=== PATIENT | male | born 1950 | race Caucasian/White ===

== ENCOUNTER 2021-01-19 04:11 | Emergency (ER) | payer OTHER, SELFPAY ==
[2021-01-19 04:13] VITALS: PULSE 70; RESP 14; TEMP 36.7
--- NOTE | 2021-01-19 04:56 | ED.GENADULT ---
HPI - General Adult General Chief complaint: Unspecified Stated complaint: Bleeding vericose vein Time Seen by Provider: 01/19/21 04:47 History of Present Illness HPI narrative: Patient 70-year-old gentleman who presents the emergency department with chief complaint of bleeding varicose vein. The patient states that he has history of bleeding varicose veins and normally is able to control them with pressure but tonight he bumped it and it started bleeding notes he was pumping out blood the patient states that he has no symptoms of lightheaded or feel like he is going to pass out Related Data Allergies Allergy/AdvReac Type Severity Reaction Status Date / Time No Known Allergies Allergy Mild Verified 01/19/21 04:18 Review of Systems Review of Systems: Narrative: A 10 system review of systems was completed on the patient and is negative except for what is stated in the HPI. Nursing and ancillary documentation was reviewed. [facility] Social History Social History Gender identity (if verbalized by the patient): Male Comments History of peripheral vascular disease and history of varicose veins Social history patient denies illicit drug use Exam Narrative: Exam Narrative: GENERAL: Well-appearing, well-nourished, and in no acute distress. HEAD: Normocephalic, atraumatic. EYES: PERRLA and EOMI. ENT: Nares clear, no rhinorrhea or epistaxis. Mucous membranes moist. NECK: Supple. CHEST: Clear to auscultation. No respiratory distress. HEART: Regular rate and rhythm. No murmur heard. Normal peripheral pulses. ABDOMEN: Soft, nontender, nondistended, normal active bowel sounds. EXTREMITIES: Normal range of motion. No edema. SKIN: Warm, dry, there is a small punctate lesion in the left lower extremity on the lateral aspect of the ankle that is bleeding profusely NEURO: No focal deficits. Alert and oriented x3. PSYCH: Normal mood and affect. Course Vital Signs Vital signs: Vital Signs Temperature 36.7 C 01/19/21 04:13 Pulse Rate 70 01/19/21 04:13 Respiratory Rate 14 01/19/21 04:13 Temperature 36.7 C 01/19/21 04:13 Pulse Rate 70 01/19/21 04:13 Respiratory Rate 14 01/19/21 04:13 Procedures Laceration Laceration 1: Date: 01/19/21 Time: 05:04 Site: lower extremity Side (If applicable): left Size (cm): 0.5 Description: other (Punctate) Depth: simple, single layer ====== Skin Level ====== Skin layer closed with: prolene Size (cm): 4-0 Number of sutures: 1 Technique: other (Pursestring) ====== Subcutaneous Layer ====== ====== Muscle Layer ====== ====== Tendon Layer ====== Medical Decision Making Vital Signs Vital Signs: Vital Signs Temperature 36.7 C 01/19/21 04:13 Pulse Rate 70 01/19/21 04:13 Respiratory Rate 14 01/19/21 04:13 Temperature 36.7 C 01/19/21 04:13 Pulse Rate 70 01/19/21 04:13 Respiratory Rate 14 01/19/21 04:13 Discharge Plan Discharge Clinical Impression: Bleeding from varicose vein Patient Disposition: Home, Self-Care Condition: Stable Instructions: Antibiotic Form, Laceration (ED), Venous Insufficiency (DC) Follow-up/Referrals: PHYSICIAN NOT ON STAFF,NONSTAFF [Non-Staff] - Time of Disposition: 05:05
[2021-01-19 05:33] VITALS: BP 116/69; PULSE 79; RESP 18; TEMP 36.6; O2SAT 100
== END 2021-01-19 05:33 | disposition home or self-care (01) ==
PROVIDERS: Emergency Provider Emergency Medicine
DX: S91.002A Unspecified open wound, left ankle, initial encounter (principal); W22.8XXA Striking against or struck by other objects, initial encounter
CPT/HCPCS: 12001; 99282

== ENCOUNTER 2021-02-05 15:28 | Emergency (ER) | payer OTHER, SELFPAY ==
--- NOTE | ~2021-02-05 | XR_ITS ---
EXAMINATION: XR knee LT 3V EXAM DATE: 02/05/2021 16:24 INDICATION: Initial encounter following injury, with pain of the left knee. TECHNIQUE: Three projections of the left knee. There is no prior study for comparison. FINDINGS: No evidence osteochondral defect or joint body in the left knee joint. There are no acut e fractures or dislocations identified. There is no subcutaneous gas. The soft tissue is unremarkab le. There are no radiopaque foreign bodies. No joint effusion. IMPRESSION: No acute osseous findings. Reviewed, dictated and finalized at location B. IMPRESSION: No acute osseous findings.
[2021-02-05 15:57] VITALS: BP 129/49; PULSE 69; RESP 14; TEMP 36.8; O2SAT 99
--- NOTE | 2021-02-05 16:15 | ED.LOWEXIN ---
HPI - Extremity Injury (Lower) General Chief Complaint: Extremity Injury, Lower Stated Complaint: Fall L Knee Injury Time Seen by Provider: 02/05/21 15:39 Source: patient Mode of arrival: ambulatory Limitations: no limitations History of Present Illness HPI Narrative: Patient is a 70-year-old male who presents complaining of left knee pain. Patient reports trip and fall on concrete steps in his garage approximately 3 days ago, reports pain to left knee since fall. Patient has edema to left lower extremity that he reports has been continuous for the past 2 to 3 months. Patient reports multiple appointments with multiple physicians at the [facility]. Patient reports follow-up appointment on left lower leg on Monday with cardiology at the [facility]. Pedal pulse present. Patient refusing all other testing and interventions other than an x-ray of left knee at this time. MD complaint: knee injury Related Data Allergies Allergy/AdvReac Type Severity Reaction Status Date / Time No Known Allergies Allergy Mild Verified 01/19/21 04:18 Review of Systems Review of Systems: Narrative: CONSTITUTIONAL: Denies fever, chills, or sweats. EYES: Denies visual changes, redness, or discharge. ENT: Denies rhinorrhea, congestion, sore throat, or otalgia. CARDIOVASCULAR: Denies chest pain, palpitations, or edema. RESPIRATORY: Denies cough or dyspnea. GASTROINTESTINAL: Denies abdominal pain, nausea, vomiting, or diarrhea. GENITOURINARY: Denies dysuria or hematuria. SKIN: Denies rash or itching. MUSCULOSKELETAL: Reports left knee pain after fall NEUROLOGIC: Denies headache, numbness, dizziness, or weakness. PSYCHIATRIC: Denies anxiety or depression. [facility] Past Medical History Medical History (Updated 02/05/21 @ 17:15 by RAFITA Douglas) Afib Diabetes Mitral valve problem Pacemaker PVD (peripheral vascular disease) Surgical History Surgical History Aortic valve replaced Hx of CABG Hx of tonsillectomy Social History Social History Gender identity (if verbalized by the patient): Male Comments Patient's history is limited to what patient is reporting. Patient reports all medical history is at [facility]. At the time of signature, I have reviewed and agree with nursing past medical, surgical, social, and family history unless otherwise noted. Please see nursing chart for further information. There is no relevant family history pertinent to the presenting complaint. Exam Narrative: Exam Narrative: GENERAL: Well-appearing, well-nourished, and in no acute distress. HEAD: Normocephalic, atraumatic. EYES: EOMI. No redness or drainage. Conjunctiva are normal. ENT: Mucous membranes pink and moist. CHEST: No respiratory distress. Clear to auscultation. HEART: Regular rate and rhythm. No murmur appreciated. Normal peripheral pulses. EXTREMITIES: Normal range of motion. Edema to left lower extremity, ecchymosis and tenderness with palpation to left knee. Positive pedal pulse SKIN: Warm, dry, no rash. NEURO: No focal deficits. Alert and oriented x3. Gait steady. PSYCH: Normal affect. No signs of depression or anxiety. Course Vital Signs Vital signs: Vital Signs Temperature 36.8 C 02/05/21 15:57 Pulse Rate 69 02/05/21 15:57 Respiratory Rate 14 02/05/21 15:57 Blood Pressure 129/49 L 02/05/21 15:57 Pulse Oximetry 99 02/05/21 15:57 Temperature 36.8 C 02/05/21 15:57 Pulse Rate 70 02/05/21 16:56 Respiratory Rate 14 02/05/21 16:56 Blood Pressure 130/77 02/05/21 16:56 Pulse Oximetry 99 02/05/21 16:56 Reviewed MDM - Extremity Injury (Lower) MDM Narrative Medical decision making narrative: X-ray reports no acute osseous abnormality. Discussed with patient most likely contusion. Again consulted patient about further evaluation of his left lower extremity, which he refuses at this time. Patient is aware of the rami
--- NOTE | 2021-02-05 16:49 | PC.NURSE ---
Pt. pulse feels weak in left foot. Pt. refusing doppler and ultrasound for their left leg. ERP aware. ERP speaking with patient.
[2021-02-05 16:56] VITALS: BP 130/77; PULSE 70; RESP 14; O2SAT 99
== END 2021-02-05 17:25 | disposition home or self-care (01) ==
PROVIDERS: Emergency Provider Nurse Practitioner
DX: S80.02XA Contusion of left knee, initial encounter (principal); I48.91 Unspecified atrial fibrillation; E11.9 Type 2 diabetes mellitus without complications; Z95.0 Presence of cardiac pacemaker; I73.9 Peripheral vascular disease, unspecified; Z95.2 Presence of prosthetic heart valve; Z95.1 Presence of aortocoronary bypass graft; W10.9XXA Fall (on) (from) unspecified stairs and steps, initial encounter
CPT/HCPCS: 73562; 99283